=== PATIENT | male | born 1985 | race American Indian/Alaskan Native ===

== ENCOUNTER 2022-03-01 11:02 | Emergency (ER) | payer SELFPAY ==
--- NOTE | 2022-03-01 11:51 | Emergency Department Report ---
ED General Adult HPI - General Stated complaint: PAIN WHEN URINATING - History of Present Illness Initial comments: 36-year-old male with no significant past medical history reports to the ER with complaints of burning with urination and clear discharge for 1 week. Patient reports his last sexual intercourse without protection was about a week and a half ago. No other acute symptoms reported - Related Data Previous Rx's Medication Instructions Recorded Last Taken Type Doxycycline Monohydrate 100 mg PO BID 7 Days #14 cap 03/01/22 Unknown Rx [Doxycycline Monohydrate CAP] Allergies Allergy/AdvReac Type Severity Reaction Status Date / Time No Known Allergies Allergy Verified 03/01/22 12:06 ED Review of Systems ROS: Stated complaint: PAIN WHEN URINATING Other details as noted in HPI Comment: All other systems reviewed and negative Genitourinary: dysuria, discharge ED Past Medical Hx - Past Medical History Previous Medical History?: No - Medications Home Medications: Home Medications Medication Instructions Recorded Confirmed Last Taken Type Doxycycline Monohydrate 100 mg PO BID 7 Days #14 cap 03/01/22 Unknown Rx [Doxycycline Monohydrate CAP] ED Physical Exam - General General appearance: alert, in no apparent distress - Head Head exam: Present: atraumatic, normocephalic - Eye Eye exam: Present: normal appearance - ENT ENT exam: Present: mucous membranes moist - Neck Neck exam: Present: normal inspection - Respiratory Respiratory exam: Present: normal lung sounds bilaterally. Absent: respiratory distress - Cardiovascular Cardiovascular Exam: Present: regular rate, normal rhythm. Absent: systolic murmur, diastolic murmur, rubs, gallop - GI/Abdominal GI/Abdominal exam: Present: soft, normal bowel sounds - Rectal Rectal exam: Present: deferred - Extremities Exam Extremities exam: Present: normal inspection - Back Exam Back exam: Present: normal inspection - Neurological Exam Neurological exam: Present: alert, oriented X3 - Psychiatric Psychiatric exam: Present: normal affect, normal mood - Skin Skin exam: Present: warm, dry, intact, normal color. Absent: rash ED Course Vital Signs 03/01/22 03/01/22 12:00 13:06 Temperature 97.5 F L 97.5 F L Pulse Rate 63 63 Respiratory 16 16 Rate Blood Pressure 121/73 Blood Pressure 121/73 [Left] O2 Sat by Pulse 100 100 Oximetry ED Medical Decision Making - Medical Decision Making 36-year-old male reports to the ER with dysuria and clear discharge for 1 week after having unprotected sex 1 week and a half ago. No acute symptoms on physical exam. Patient will be prophylactically treated with 500 mg of Rocephin IM and doxycycline 100 mg twice daily for 7 days. UA is negative for any acute process. Vital Signs 03/01/22 03/01/22 12:00 13:06 Temperature 97.5 F L 97.5 F L Pulse Rate 63 63 Respiratory 16 16 Rate Blood Pressure 121/73 Blood Pressure 121/73 [Left] O2 Sat by Pulse 100 100 Oximetry Patient agrees with plan of care and verbalized understanding. Patient is a for discharge home. No further work-up is needed at this time. Patient informed if symptoms are to get worse to report back to the ER. Critical care attestation.: If time is entered above; I have spent that time in minutes in the direct care of this critically ill patient, excluding procedure time. ED Disposition Clinical Impression: Discharge from penis, Dysuria Disposition: 01 HOME / SELF CARE / HOMELESS Is pt being admited?: No Condition: Stable Instructions: Dysuria, Safe Sex Prescriptions: Doxycycline Monohydrate [Doxycycline Monohydrate CAP] 100 mg PO BID 7 Days #14 cap Referrals: TANK SKY MD [Primary Care Provider] - 3-5 Days
[2022-03-01 12:02] VITALS: BP 121/73
[2022-03-01 12:18] LABS: Mucus,Urine FEW /HPF
[2022-03-01 12:22] LABS: Color,Urine Straw (Yellow)
[2022-03-01] MEDS ORDERED: LIDOCAINE-MPF (1%) 10 MG/1 ML VIAL 5 ML INFILTRATI ONE (12:30)
== END 2022-03-01 13:07 | disposition home or self-care (01) ==
LOC: ED 11:02
DX: R30.0 Dysuria (principal); R36.9 Urethral discharge, unspecified
CPT/HCPCS: 81001; 96372; 99283; J0696; J3490